=== PATIENT | male | born 1975 | race Two or more races ===

== ENCOUNTER 2024-07-29 11:22 | Inpatient (IN) | payer OTHER ==
[~2024-07-29] VITALS: Ht 172.7 cm; Wt 79.4 kg
[2024-07-29] MEDS ORDERED: LOSARTAN POTASS25 MG PO (12:18)
[2024-07-29] MEDS ORDERED: 0.9 % SODIUM CHLORIDE 1,000 ML IV ONE (12:30)
[2024-07-29] MEDS ORDERED: FAMOtidine 10 MG/ML (4ML VIAL) IV ONE (12:30)
[2024-07-29] MEDS ORDERED: MEPERIDINE HCL/PF 50 MG/ML VIAL IM ONE (12:30)
[2024-07-29] MEDS ORDERED: FAMOTIDINE/PF 20 MG/2 ML VIAL ONE (13:15)
[2024-07-29 13:39] LABS: HEMATOCRIT 40.9 % (39.0-48.0); HEMOGLOBIN 14.4 g/dL (13-16.00); MEAN CELL VOLUME 88.4 fL (80.0-100.00); MEAN CORPUSCULAR HEMOGLOBIN 31.1 pg (27.00-32.0); MEAN CORPUSCULAR HGB CONC 35.2 g/dl (32.0-36.0); PLATELET COUNT 201 K/uL (150-450); RED BLOOD COUNT 4.63 M/uL (4.00-6.00); RED CELL DISTRIBUTION WIDTH 12.7 % (11.5-14.5)
[2024-07-29 14:07] LABS: ALBUMIN 4.1 gm/dL (3.4-5.0); BILIRUBIN TOTAL 0.76 mg/dL (0.3-1.2); CALCIUM 9.6 mg/dL (8.5-10.1); CREATININE SERUM 1.04 mg/dL (0.70-1.30); GFR 76.55; GLOBULINA 3.4 G/DL (2.4-3.5); POTASSIUM 4.95 mEq/L (3.5-5.1); TOTAL PROTEIN 7.5 gm/dL (6.4-8.2)
[2024-07-29 14:56] LABS: PH,URINE 8.5 (5.0-8.0); URINE APPEARANCE Clear; URINE BILIRRUBIN Negative (NEGATIVE); URINE BLOOD Negative; URINE COLOR Yellow; URINE GLUCOSE Negative (NEGATIVE); URINE KETONE 15 (NEGATIVE); URINE LEUKOCYTE Negative; URINE NITRATE Negative; URINE PROTEIN 30 (NEGATIVE)
[2024-07-29 15:21] LABS: URINE BACTERIA 3.7 uL (0.0-1933); URINE EPITHELIAL CELLS 0.4 uL (0.0-38.8); URINE RBC 1.9 uL (0.0-20.8); URINE WBC 0.3 uL (0.0-23.2)
[2024-07-29] MEDS ORDERED: PIPERACILLIN/TAZOBACTAM SODIUM 3.375 GM VIAL IV ONE ×2 (17:15→18:19)
[2024-07-29] MEDS ORDERED: DEXTROSE 5 % AND 0.9 % NACL 1,000 ML IV SCH (20:00)
[2024-07-29] MEDS ORDERED: MEPERIDINE HCL/PF 25 MG/ML VIAL IM SCH (20:02)
[2024-07-29] MEDS ORDERED: ONDANSETRON HCL 4 MG in 0.9 % SODIUM CHLORIDE 50 ML IV PRN (20:15)
[2024-07-29] MEDS ORDERED: hydrALAZINE HCL 20 MG VIAL IV PRN (20:15)
[2024-07-29] MEDS ORDERED: ACETAMINOPHEN 500 MG GEL..CAP PO PRN (20:15)
[2024-07-29] MEDS ORDERED: FAMOTIDINE/PF 20 MG in 0.9 % SODIUM CHLORIDE 8 ML IV PUSH SCH (21:00)
[2024-07-30] MEDS ORDERED: PIPERACILLIN/TAZOBACTAM SODIUM 3.375 GM in 0.9 % SODIUM CHLORIDE 100 ML IV SCH
[2024-07-30 00:43] VITALS: BP 146/80
[2024-07-30 02:22] VITALS: BP 146/80; O2SAT 99
[2024-07-30 03:42] VITALS: BP 125/80; O2SAT 100
[2024-07-30 08:00] VITALS: BP 133/79; O2SAT 95
[2024-07-30 08:34] LABS: HEMOGLOBIN 12.8 g/dL (13-16.00); MEAN CELL VOLUME 89.8 fL (80.0-100.00); MEAN CORPUSCULAR HEMOGLOBIN 31.1 pg (27.00-32.0); MEAN CORPUSCULAR HGB CONC 34.6 g/dl (32.0-36.0); PLATELET COUNT 184 K/uL (150-450); RED BLOOD COUNT 4.12 M/uL (4.00-6.00); RED CELL DISTRIBUTION WIDTH 12.8 % (11.5-14.5)
[2024-07-30 08:57] LABS: INR 1.09; PARTIAL THROMBOPLASTIN TIME 30.7 SECONDS (22.0-34.0); PROTHROMBIN TIME 11.8 SECONDS (9.0-11.5)
[2024-07-30] MEDS ORDERED: LOSARTAN POTASSIUM 25 MG TABLET PO SCH (09:00)
[2024-07-30 09:01] LABS: ALBUMIN 3.4 gm/dL (3.4-5.0); BILIRUBIN TOTAL 0.97 mg/dL (0.3-1.2); BILIRUBIN,CONJUGATED 0.21 mg/dL (0.0-0.2); BILIRUBIN,UNCONJUGATED 0.76 mg/dL (0.0-0.6); CALCIUM 8.6 mg/dL (8.5-10.1); CHOL HDL RATIO 3.4 (0-5.0); CREATININE SERUM 1.19 mg/dL (0.70-1.30); GFR 65.53; POTASSIUM 3.83 mEq/L (3.5-5.1); TOTAL PROTEIN 6.4 gm/dL (6.4-8.2)
[2024-07-30 09:05] LABS: C-REACTIVE PROTEIN 13.6 MG/DL (0.00-0.29)
[2024-07-30 10:04] LABS: URINE APPEARANCE Clear; URINE BILIRRUBIN Negative (NEGATIVE); URINE BLOOD Negative; URINE COLOR Yellow; URINE GLUCOSE Negative (NEGATIVE); URINE KETONE Negative (NEGATIVE); URINE LEUKOCYTE Negative; URINE NITRATE Negative; URINE PROTEIN Negative (NEGATIVE)
[2024-07-30 10:16] LABS: ERYTHROCYTE SEDIMENTATION RATE 21 mm/hr
[2024-07-30 10:28] LABS: URINE BACTERIA 1.2 uL (0.0-1933); URINE RBC 0.7 uL (0.0-20.8); URINE WBC 1.5 uL (0.0-23.2)
[2024-07-30 16:00] VITALS: BP 123/75; O2SAT 95
[2024-07-31 00:21] VITALS: BP 145/84; O2SAT 95
[2024-07-31 08:00] VITALS: BP 138/79; O2SAT 97
[2024-07-31 09:47] LABS: HEMATOCRIT 37.6 % (39.0-48.0); HEMOGLOBIN 12.9 g/dL (13-16.00); MEAN CELL VOLUME 90.1 fL (80.0-100.00); MEAN CORPUSCULAR HEMOGLOBIN 30.9 pg (27.00-32.0); MEAN CORPUSCULAR HGB CONC 34.3 g/dl (32.0-36.0); PLATELET COUNT 183 K/uL (150-450); RED BLOOD COUNT 4.17 M/uL (4.00-6.00); RED CELL DISTRIBUTION WIDTH 12.9 % (11.5-14.5)
[2024-07-31 10:58] LABS: ALBUMIN 3.1 gm/dL (3.4-5.0); BILIRUBIN TOTAL 0.82 mg/dL (0.3-1.2); CALCIUM 8.9 mg/dL (8.5-10.1); CREATININE SERUM 1.02 mg/dL (0.70-1.30); GFR 78.28; GLOBULINA 3.4 G/DL (2.4-3.5); POTASSIUM 4.23 mEq/L (3.5-5.1); TOTAL PROTEIN 6.5 gm/dL (6.4-8.2)
[2024-07-31 16:42] VITALS: BP 155/81; O2SAT 96
[2024-08-01 01:00] VITALS: BP 147/84; O2SAT 98
[2024-08-01 07:58] VITALS: BP 148/80; O2SAT 97
== END 2024-08-01 10:36 | disposition home or self-care (01) | DRG 399 ==
LOC: ER 11:24 → SURH 20:09
PROVIDERS: General Practice; Internal Medicine; Surgery; ADMIT Internal Medicine; ATTEND Internal Medicine
PROC: BW21YZZ Computerized Tomography (CT Scan) of Abdomen and Pelvis using Other Contrast (ICD-10-PCS; 2024-07-29)
PROC: 0DTJ0ZZ Resection of Appendix, Open Approach (ICD-10-PCS; principal; 2024-07-30 10:00)
DX: K35.891 Other acute appendicitis without perforation, with gangrene (principal); I10 Essential (primary) hypertension